=== PATIENT | male | born 1985 | race Hispanic/Latino ===

== ENCOUNTER 2021-03-14 14:21 | Emergency (ER) | payer SELFPAY ==
[2021-03-14 14:29] VITALS: BP 144/79; PULSE 90; RESP 16; TEMP 36.7; O2SAT 98
--- NOTE | 2021-03-14 14:37 | ED.GENADULT ---
HPI - General Adult General Chief complaint: Ear Stated complaint: ear pain Time Seen by Provider: 03/14/21 14:36 Source: patient and RN notes reviewed Mode of arrival: ambulatory Limitations: no limitations History of Present Illness HPI narrative: 35-year-old male presents with complaints of left ear being clogged, pain, and decreased hearing from for the past 8 days. ?Cisco reports increasing pain over the past 48 hours. ?Tylenol, last taken today at 07:30 AM without relief. ?Swimming and getting water into LT ear. Denies URI symptoms, ?No high fevers. ?Denies injury to the ear. ?No nasal drainage and congestion. ?Denies nausea, vomiting, tinnitus, and dizziness. The patient reports he has not been diagnosed with COVID-19. The patient reports he received 2 [employer] COVID-19 vaccines. The patient reports he is not waiting for the results of a COVID-19 lab test. The patient reports he does not have chills, weakness, or fatigue. The patient reports he does not have a new or worsening cough or shortness of breath. ?Denies chest pain. ?The patient reports he does not have any loss of taste or smell, sore throat, abdominal pain, and diarrhea. ?Tolerating po intake well. ?Denies recent traveling. Denies concerns for COVID-19 or exposures. ?At this time, the patient is not suspected of having COVID-19. Some parts of this dictation were generated by voice recognition software and may contain typographical and/or grammatical inaccuracies. Related Data Allergies Allergy/AdvReac Type Severity Reaction Status Date / Time Penicillins Allergy Intermediate Rash Verified 03/14/21 14:34 Review of Systems Review of Systems: Narrative: CONSTITUTIONAL: Denies fever, chills, sweats. EYES: Denies visual changes, redness, discharge. ENT: Denies rhinorrhea, congestion, sore throat, ear drainage, itching. Complains of LT otalgia, ear decreased hearing, and clogged feeling. CARDIOVASCULAR: Denies chest pain, palpitations, edema. RESPIRATORY: Denies dyspnea, wheezing, cough. GASTROINTESTINAL: Denies abdominal pain, nausea, vomiting, diarrhea. SKIN: Denies rash or itching. MUSCULOSKELETAL: Denies acute back pain, joint pain, or myalgia. NEUROLOGIC: Denies numbness or focal weakness. PSYCHIATRIC: Denies anxiety or depression. All systems reviewed & are unremarkable except as noted in HPI and below. [facility] Past Medical History Medical History (Updated 03/15/21 @ 00:01 by Mylene Copeland) No significant past medical history Surgical History Surgical History (Updated 03/14/21 @ 14:41 by MAYRA Gambino) Hx of appendectomy Family History Family History (Updated 03/14/21 @ 14:42 by MAYRA Gambino) Father Acute myocardial infarction Mother Respiratory abnormalities Social History Social History (Updated 03/14/21 @ 14:43 by MAYRA Gambino) Smoking status: Light tobacco smoker Tobacco type: cigarettes Second hand tobacco smoke exposure: No Alcohol intake: current Substance use: never Substance use type: does not use Living arrangements: with family Occupation/Education: occupation Gender identity (if verbalized by the patient): Male Comments At time of signature, I have reviewed and agree with the nursing past medical, surgical, social, and family history. Please see the nursing chart for further information. There is no relevant family history pertinent to the presenting complaint. Exam Narrative: Exam Narrative: GENERAL: This is a well-nourished, well-developed patient, in no apparent distress. Talks in full sentences and ambulates with steady gait without dyspnea HEAD: Normocephalic, atraumatic. EYES: PERRL. Sclera clear/white. Vision is grossly intact. EARS: Pinna is normal shape and contour. Clear external auditory canals. RT TM pearly beltran with good cone of light, no erythema or suppuration. Unable to see LT TM due to large amount of cerumen, will attempt to remove, s
== END 2021-03-14 15:26 | disposition home or self-care (01) ==
PROVIDERS: Emergency Provider Nurse Practitioner Family
DX: H66.92 Otitis media, unspecified, left ear (principal); H60.92 Unspecified otitis externa, left ear; H61.22 Impacted cerumen, left ear; F17.210 Nicotine dependence, cigarettes, uncomplicated
CPT/HCPCS: 69209; 99213; A9270; G0463

== ENCOUNTER 2024-01-11 09:23 | Emergency (ER) | payer SELFPAY ==
--- NOTE | ~2024-01-11 | XR_ITS ---
XR hand LT min 3V DATE: 01/11/2024 12:49 INDICATION: Postoperative reduction examination TECHNIQUE: 3 views COMPARISON: 01/11/2024 FINDINGS: Again noted is a comminuted fracture of the distal phalanx of the third digit. Now there is evidence of a lucent fracture line extending into the lateral base of the distal phalanx. There is virtually anatomic position and alignment at the fracture following reduction. IMPRESSION: Virtually anatomically aligned comminuted intra-articular fracture of the distal phalanx of the third digit Reviewed, dictated and finalized at location A.
--- NOTE | ~2024-01-11 | XR_ITS ---
XR hand LT min 3V DATE: 01/11/2024 09:56 INDICATION: Left third finger injury and one more TECHNIQUE: 3 views of left hand COMPARISON: None FINDINGS: There is a comminuted fracture of the shaft and tuft of the distal phalanx with approximate ly one cortical width dorsal. No other fracture or dislocation. No radiopaque soft tissue foreign body is detected. Displacement. IMPRESSION: Comminuted fracture of distal phalanx of third digit Reviewed, dictated and finalized at location A.
[2024-01-11 09:25] VITALS: BP 138/72; PULSE 70; RESP 20; TEMP 36.7; O2SAT 100
--- NOTE | 2024-01-11 09:34 | ED.GENADULT ---
[facility] - General Adult General Chief complaint: Wound/Laceration Stated complaint: wound Time Seen by Provider: 01/11/24 09:31 Source: patient Mode of arrival: ambulatory Limitations: no limitations History of Present Illness HPI narrative: This is a 38-year-old male who presents to the ED with chief complaint of laceration injury to 3rd and 4th finger of the left hand. He was attempting to get the lawnmower going when this happened. States he reached under the paint stockman when his son prolong the start cord. States that the late started to turn and or caught the middle finger. Denies any further sites of pain or injury Related Data Allergies Allergy/AdvReac Type Severity Reaction Status Date / Time Penicillins Allergy Severe Anaphylaxis Verified 01/11/24 09:43 Review of Systems Review of Systems: All systems as dictated in [facility] Past Medical History Medical History (Updated 01/11/24 @ 12:42 by Filemon Pitts PA-C) No significant past medical history Surgical History Surgical History (Updated 03/14/21 @ 14:41 by MAYRA Gambino) Hx of appendectomy Family History Family History (Updated 03/14/21 @ 14:42 by MAYAR Gambino) Father Acute myocardial infarction Mother Respiratory abnormalities Social History Social History (Updated 03/14/21 @ 14:43 by MAYRA Gambino) Smoking status: Light tobacco smoker Tobacco type: cigarettes Second hand tobacco smoke exposure: No Alcohol intake: current Substance use: never Substance use type: does not use Living arrangements: with family Occupation/Education: occupation Gender identity (if verbalized by the patient): Male Exam Narrative: GENERAL: Well-appearing, well-nourished, and in no acute distress. HEAD: Normocephalic, atraumatic. EYES: PERRLA and EOMI. ENT: Nares clear, no rhinorrhea or epistaxis. Mucous membranes moist. Oropharynx without tonsillar hypertrophy exudate or other lesions. NECK: Supple. No adenopathy or masses. CHEST: No respiratory distress. Clear to auscultation. No wheezes rales or rhonchi HEART: Regular rate and rhythm. No murmur heard. Normal peripheral pulses. ABDOMEN: Soft, nontender, nondistended, normal active bowel sounds. MSK: Normal range of motion. No edema. SKIN: Left hand: Irregular laceration to the nail bed of the 3rd finger. There is about 40% nail still attached to the ulnar side. The rest of the nail has been completely avulsed. Nail bed is damaged. NEURO: Alert and oriented x3. No focal deficits. PSYCH: Normal mood and affect. Course Vital Signs Vital signs: Vital Signs Temperature 98.1 F 01/11/24 09:25 Pulse Rate 70 01/11/24 09:25 Respiratory Rate 20 01/11/24 09:25 Blood Pressure 138/72 01/11/24 09:25 Pulse Oximetry 100 01/11/24 09:25 Oxygen Delivery Room Air 01/11/24 09:25 Temperature 98.1 F 01/11/24 09:25 Pulse Rate 70 01/11/24 09:25 Respiratory Rate 20 01/11/24 09:25 Blood Pressure 138/72 01/11/24 09:25 Pulse Oximetry 100 01/11/24 09:25 Oxygen Delivery Room Air 01/11/24 09:25 Procedures Laceration Laceration 1: Date: 01/11/24 Time: 12:38 Site: hand Side (If applicable): left Size (cm): 1.5 Description: irregular Depth: [id number] (Deep laceration to the nailbed, exposing bone) Local Anesthetic: lidocaine 1% (Digital block) Amount of anesthesia used (mL): 2 Pre-repair: wound explored and irrigated extensively ====== Skin Level ====== Skin layer closed with: vicryl Size (cm): 5-0 Number of sutures: 4 Technique: simple, interrupted ====== Subcutaneous Layer ====== ====== Muscle Layer ====== ====== Tendon Layer ====== Medical Decision Making MDM Narrative Medical decision making narrative: This is a 38-year-old male who presents to the ED with luis
[2024-01-11] MEDS: TETANUS,DIPHTHERIA,AC PERTUSSIS ADULT (0.5 ML) BOOSTRIX IM (11:00)
[2024-01-11] MEDS: LIDOCAINE HCL 1% LOCAL INJ 10 ML VIAL INFILTRATE (11:01)
[2024-01-11] MEDS: MORPHINE SULFATE (*CRX) 4 MG/ML INJ IV PUSH (12:35)
[2024-01-11] MEDS: CLINDAMYCIN 450 MG in DEXTROSE 5% IN WATER 50 ML 106 MG IVPB (12:55)
--- NOTE | 2024-01-30 13:18 | PC.NURSE ---
LATE ENTRY This note is being entered to document information to the patient's record. The following information was omitted on [01/11/24], by [Norma Broussard RN]. left 3rd digit metal finger splint applied.
== END 2024-01-11 14:31 | disposition home or self-care (01) ==
PROVIDERS: Emergency Provider Physician Assistant; PCP Physician Assistant
DX: S62.633B Displaced fracture of distal phalanx of left middle finger, initial encounter for open fracture (principal); Z23 Encounter for immunization; F17.210 Nicotine dependence, cigarettes, uncomplicated; W28.XXXA Contact with powered lawn mower, initial encounter
CPT/HCPCS: 12001; 29130; 73130; 90471; 90715; 96365; 96375; 99284; J2270